=== PATIENT | female | born 1945 | race Asian ===

== ENCOUNTER 2018-07-20 20:31 | Inpatient (IN) | payer MEDICARE ==
[~2018-07-20] VITALS: Ht 152.4 cm; Wt 39.0 kg
--- NOTE | 2018-07-20 20:50 | NUR ---
LINCOLN C/O RESTLESSNESS [id number]. PT UNABLE TO SIT STILL, CONSTANTLY WALKING. PMD RECENTLY CHANGED DOSAGE OF LORAZEPAM AND RISPERIDONE 1 MONTH AGO. PT IS GCS 12. NO S/S OF ACUTE DISTRESS NOTED. RR EVEN AND UNLABORED. PT PLACED ON FEED AND FARM MANAGEMENT ADVISER AND POX. SON AND FAMILY BEDSIDE WITH PT. PT NOTED SITTING IN CHAIR WITH SON BESIDES HER. BEDSIDE FOR EVAL. WILL CONTINUE TO MONITOR PT FOR SAFETY AND COMFORT.
[2018-07-20] MEDS ORDERED: HALOPERIDOL LACTATE INJ 5 MG/ML VIAL ONE (21:11)
[2018-07-20 21:21] LABS: BASOPHILS % (AUTO) 0.4 % (0.0-2.0); EOSINOPHILS % (AUTO) 0.7 % (0.0-6.0); HEMATOCRIT 37 % (33-45); LYMPHOCYTES # (AUTO) 1.2 /CMM (0.8-4.8); LYMPHOCYTES % (AUTO) 16.9 % (20.0-44.0); MEAN CORPUSCULAR HGB CONC 33 g/dl (31.0-36.0); MEAN CORPUSCULAR VOLUME 93 fL (82-100); MONOCYTES # (AUTO) 0.4 /CMM (0.1-1.30); MONOCYTES % (AUTO) 6.1 % (2.0-12.0); NEUTROPHILS # (AUTO) 5.5 /CMM (1.8-8.9); NEUTROPHILS % (AUTO) 75.9 % (43.0-81.0); PLATELET COUNT (AUTO) 283 /CMM (150-450); RED BLOOD CELL COUNT(AUTO) 3.91 MIL/uL (4.0-5.2); WHITE BLOOD COUNT (AUTO) 7.2 K/uL (4.3-11.0)
[2018-07-20 21:30] LABS: CALCIUM, SERUM 8.7 mg/dL (8.5-10.1); CARBON DIOXIDE 25 mmol/L (21-32); CHLORIDE 103 mmol/L (98-107); CREATININE 0.9 mg/dL (0.6-1.3); GLUCOSE 285 mg/dL (74-106); POTASSIUM 3.9 mmol/L (3.5-5.1); SODIUM SERUM 139 mmol/L (136-145); UREA NITROGEN, BLOOD 15 mg/dL (7-18)
[2018-07-20] MEDS ORDERED: HALOPERIDOL LACTATE INJ 5 MG/ML VIAL IM ONE (21:30)
[2018-07-20 21:36] LABS: ALANINE AMINOTRANSFERASE 18 U/L (12-78); ALBUMIN 3.5 g/dL (3.4-5.0); ALCOHOL, BLOOD < 3 mg/dL (0-0); ALKALINE PHOSPHATASE 84 U/L (46-116); ASPARTATE AMINOTRANSFERASE 16 U/L (15-37); BILIRUBIN,DIRECT 0.1 mg/dL (0.0-0.2); BILIRUBIN,TOTAL 0.2 mg/dL (0.2-1.0); TOTAL PROTEIN, SERUM 7.2 g/dL (6.4-8.2)
[2018-07-20 21:37] LABS: ACETAMINOPHEN < 2 ug/ml (10-30); SALICYLATE 1.4 mg/dL (2.8-20.0)
--- NOTE | 2018-07-20 22:00 | NUR ---
PT RESTING IN CHAIR WITH SON BESIDES HER. NO S/S OF DISTRESS NOTED. WILL CONTINUE TO MONITOR PT.
--- NOTE | 2018-07-20 22:23 | NUR ---
REPORT GIVEN TO WILMA JOSHI FOR ANGE.
--- NOTE | 2018-07-20 22:30 | NUR ---
ADMITTED A 73 Y/O FEMALE FROM [facility] BROUGHT BY FAMILY, [facility], TRANSFERRED TO GPS WITH 1 PERSONS ASSIST VIA WHEELCHAIR, ON 5150 HOLD GD, BASED ON HOLD, PATIENT IS CONFUSED, DISORGANIZED, DISORIENTED, EXTREMELY ANXIOUS, RESTLESS, CONSTANTLY PACING, PUSHING OTHER RESIDENT, NOT SLEEPING AND NO PLAN FOR SELF CARE, PATIENT ADMITTING DX. PSYCHOSIS, MEDICAL DX. OF ALZHEIMERS DISEASE, HYPERTENSION, UPON FACE TO FACE EVALUATION, PATIENT APPEARED CONFUSED, NOT RESPONDING TO QUESTION, PACING, DISORGANIZED, UNCOOPERATIVE, NO SOB, NO ACUTE DISTRESS, BREATHING EVEN AND UNLABORED, NO S/S OF PAIN AND DISCOMFORT, PATIENT UNABLE TO SIGN PAPER WORKS, BELONGING INSPECTED FOR CONTRABAND CHECK, NOTIFIED DR. XAVIER TO RECONCILE MEDICATION, ALL NEEDS ATTENDED AND MET, WILL CONTINUE TO MONITOR.
[2018-07-20] MEDS ORDERED: ACETAMINOPHEN 325 MG TABLET PO PRN (23:00)
[2018-07-20] MEDS ORDERED: LORAZEPAM 0.5 MG TABLET PO PRN (23:00)
[2018-07-20] MEDS ORDERED: MAGNESIUM HYDROXIDE 30 ML UDC PO PRN (23:00)
[2018-07-20] MEDS ORDERED: MAG HYDROX/AL HYDROX/SIMETH 30 ML UDC PO PRN (23:00)
[2018-07-20] MEDS ORDERED: ZOLPIDEM TARTRATE 5 MG TABLET PO PRN (23:00)
[2018-07-20] MEDS ORDERED: TOBR5DRO46 RIGHTEYE (23:46)
[2018-07-20] MEDS ORDERED: LACT-179 PO (23:46)
[2018-07-20] MEDS ORDERED: AMLO5TAB7 PO (23:46)
[2018-07-20] MEDS ORDERED: DONE10TA44 PO (23:46)
[2018-07-20] MEDS ORDERED: MEMA10TA PO (23:46)
[2018-07-20] MEDS ORDERED: ASPI-1169 PO (23:46)
[2018-07-20] MEDS ORDERED: RISP1TAB27 PO (23:46)
[2018-07-21 02:20] VITALS: BP 149/63
[2018-07-21 07:05] LABS: BASOPHILS % (AUTO) 0.4 % (0.0-2.0); EOSINOPHILS % (AUTO) 0.5 % (0.0-6.0); HEMATOCRIT 36 % (33-45); HEMOGLOBIN 11.7 g/dL (11.5-14.8); LYMPHOCYTES % (AUTO) 15.1 % (20.0-44.0); MEAN CORPUSCULAR HGB CONC 33 g/dl (31.0-36.0); MEAN CORPUSCULAR VOLUME 93 fL (82-100); MONOCYTES % (AUTO) 6.5 % (2.0-12.0); NEUTROPHILS % (AUTO) 77.5 % (43.0-81.0); PLATELET COUNT (AUTO) 278 /CMM (150-450); RED BLOOD CELL COUNT(AUTO) 3.81 MIL/uL (4.0-5.2); WHITE BLOOD COUNT (AUTO) 6.1 K/uL (4.3-11.0)
[2018-07-21 07:06] LABS: LYMPHOCYTES # (AUTO) 0.9 /CMM (0.8-4.8); MONOCYTES # (AUTO) 0.4 /CMM (0.1-1.30); NEUTROPHILS # (AUTO) 4.8 /CMM (1.8-8.9)
[2018-07-21 07:29] LABS: ALANINE AMINOTRANSFERASE 18 U/L (12-78); ALBUMIN 3.5 g/dL (3.4-5.0); ALKALINE PHOSPHATASE 78 U/L (46-116); ASPARTATE AMINOTRANSFERASE 21 U/L (15-37); BILIRUBIN,TOTAL 0.2 mg/dL (0.2-1.0); CALCIUM, SERUM 8.8 mg/dL (8.5-10.1); CARBON DIOXIDE 24 mmol/L (21-32); CHLORIDE 103 mmol/L (98-107); CREATININE 0.7 mg/dL (0.6-1.3); GLUCOSE 136 mg/dL (74-106); POTASSIUM 3.5 mmol/L (3.5-5.1); SODIUM SERUM 137 mmol/L (136-145); UREA NITROGEN, BLOOD 14 mg/dL (7-18)
[2018-07-21 08:00] VITALS: BP 98/68
[2018-07-21] MEDS: AMLODIPINE BESYLATE 5 MG TABLET PO SCH (09:00)
[2018-07-21] MEDS: ENSURE ENLIVE CHOC 237 ML CAN PO SCH ×3 (09:11→17:34)
[2018-07-21] MEDS: MEMANTINE HCL 5 MG TABLET PO SCH ×2 (09:11→17:35)
[2018-07-21] MEDS: ASPIRIN 81 MG TAB.CHEW PO SCH (09:11)
[2018-07-21 10:11] LABS: CHOLESTEROL 195 mg/dL (<200); HDL CHOLESTEROL 90 mg/dL (40-60); LDL 103 mg/dL (0-99); TRIGLYCERIDES 57 mg/dL (30-150)
[2018-07-21 16:00] VITALS: BP 126/57
[2018-07-21 20:00] VITALS: BP 156/82
[2018-07-21] MEDS: DONEPEZIL 5 MG TABLET PO SCH (21:59)
[2018-07-21] MEDS: QUETIAPINE FUMARATE 25 MG TABLET PO SCH (21:59)
[2018-07-21] MEDS: LORAZEPAM 0.5 MG TABLET PO PRN (22:00)
[2018-07-22 08:00] VITALS: BP 120/69
[2018-07-22] MEDS: ASPIRIN 81 MG TAB.CHEW PO SCH (08:30)
[2018-07-22] MEDS: MEMANTINE HCL 5 MG TABLET PO SCH ×2 (08:30→16:15)
[2018-07-22] MEDS: AMLODIPINE BESYLATE 5 MG TABLET PO SCH (08:30)
[2018-07-22] MEDS: ENSURE ENLIVE CHOC 237 ML CAN PO SCH ×3 (08:31→16:15)
[2018-07-22 16:01] VITALS: BP 100/59
[2018-07-22 20:00] VITALS: BP 140/69
[2018-07-22] MEDS: DONEPEZIL 5 MG TABLET PO SCH (21:40)
[2018-07-22] MEDS: QUETIAPINE FUMARATE 25 MG TABLET PO SCH (21:40)
[2018-07-22] MEDS: LORAZEPAM 0.5 MG TABLET PO PRN (23:14)
--- NOTE | 2018-07-22 23:14 | NUR ---
GPS-RN PATIENT IS ANXIOUS AND RESTLESS. ADMINISTERED ATIVAN 0.5MG PO ORDERED. WILL CONTINUE TO MONITOR PT. CLOSELY.
[2018-07-23 08:00] VITALS: BP 149/54
[2018-07-23] MEDS: AMLODIPINE BESYLATE 5 MG TABLET PO SCH (09:52)
[2018-07-23] MEDS: MEMANTINE HCL 5 MG TABLET PO SCH ×2 (09:52→16:38)
[2018-07-23] MEDS: ASPIRIN 81 MG TAB.CHEW PO SCH (09:52)
[2018-07-23] MEDS: ENSURE ENLIVE CHOC 237 ML CAN PO SCH ×3 (09:56→16:41)
--- NOTE | 2018-07-23 10:57 | NUR ---
SW spoke with pts son Jared [phone] regarding discharge planning and collateral information. Per son, he wishes for pt to be discharged to a SNF. Son also stated that he is pts Probate Conservator, SW requested documentation be faxed to her to place in pts chart. SOn also stated that he was okay with pt being placed locally.
--- NOTE | 2018-07-23 11:19 | NUR ---
INITIAL DISCHARGE PLAN: Pts son Jared [phone] wishes for pt to be discharged to a SNF. Pts son, agrees to local placement. SW will help form a safe and proper discharge in collaboration with Son and MD.
[2018-07-23 16:00] VITALS: BP 150/102
[2018-07-23 20:36] VITALS: BP 149/99
[2018-07-23] MEDS: QUETIAPINE FUMARATE 25 MG TABLET PO SCH (21:40)
[2018-07-23] MEDS: DONEPEZIL 5 MG TABLET PO SCH (21:41)
[2018-07-24] MEDS: LORAZEPAM 0.5 MG TABLET PO PRN ×2 (00:33→20:57)
--- NOTE | 2018-07-24 00:33 | NUR ---
GPS-RN PATIENT IS ANXIOUS AND RESTLESS. ADMINISTERED ATIVAN 0.5MG PO ORDERED. WILL MONITOR CLOSELY PATIENT'S BEHAVIOR AND SAFETY.
[2018-07-24 08:00] VITALS: BP 113/58
[2018-07-24] MEDS: AMLODIPINE BESYLATE 5 MG TABLET PO SCH (08:47)
[2018-07-24] MEDS: ASPIRIN 81 MG TAB.CHEW PO SCH (08:47)
[2018-07-24] MEDS: MEMANTINE HCL 5 MG TABLET PO SCH ×2 (08:47→16:48)
[2018-07-24] MEDS: ENSURE ENLIVE CHOC 237 ML CAN PO SCH ×3 (09:03→16:49)
[2018-07-24 16:00] VITALS: BP 116/88
[2018-07-24 20:19] VITALS: BP 114/73
[2018-07-24] MEDS: DONEPEZIL 5 MG TABLET PO SCH (21:10)
[2018-07-24] MEDS: QUETIAPINE FUMARATE 25 MG TABLET PO SCH (21:11)
[2018-07-25 08:00] VITALS: BP_SYST 130; BP_SYST 146; BP_DIAS 69; BP_DIAS 81
--- NOTE | 2018-07-25 09:45 | NUR ---
SW received Probate Conservatorship paperwork via fax from Pts son Jared [phone] and placed it in pts chart.
[2018-07-25] MEDS: AMLODIPINE BESYLATE 5 MG TABLET PO SCH (09:57)
[2018-07-25] MEDS: ASPIRIN 81 MG TAB.CHEW PO SCH (09:57)
[2018-07-25] MEDS: ENSURE ENLIVE CHOC 237 ML CAN PO SCH ×3 (09:58→18:04)
[2018-07-25] MEDS: MEMANTINE HCL 5 MG TABLET PO SCH ×2 (10:00→18:04)
--- NOTE | 2018-07-25 15:26 | NUR ---
BRENDA faxed SNF referral to Oimd Rail Filler at [facility] [place] Address: [address] [facility], [place] [address] for review.
[2018-07-25 16:00] VITALS: BP 121/54
--- NOTE | 2018-07-25 18:00 | NUR ---
cooperative,med compliant.
[2018-07-25 20:22] VITALS: BP 131/65
[2018-07-25] MEDS: DONEPEZIL 5 MG TABLET PO SCH (21:19)
[2018-07-25] MEDS: QUETIAPINE FUMARATE 25 MG TABLET PO SCH (21:19)
[2018-07-26 08:00] VITALS: BP 128/65
[2018-07-26] MEDS: ASPIRIN 81 MG TAB.CHEW PO SCH (09:33)
[2018-07-26] MEDS: MEMANTINE HCL 5 MG TABLET PO SCH ×2 (09:33→17:09)
[2018-07-26] MEDS: AMLODIPINE BESYLATE 5 MG TABLET PO SCH (09:33)
[2018-07-26] MEDS: ENSURE ENLIVE CHOC 237 ML CAN PO SCH ×3 (09:35→17:13)
--- NOTE | 2018-07-26 13:18 | NUR ---
SW received a phone call from Neida, organ recovery coordinator at [facility] Address: [address] [facility], [place] [address] stating pt has been accepted to the facility.
[2018-07-26 16:00] VITALS: BP 112/63
--- NOTE | 2018-07-26 19:03 | NUR ---
Patient cooperative,med compliant.
[2018-07-26 20:00] VITALS: BP 114/58
[2018-07-26] MEDS: QUETIAPINE FUMARATE 25 MG TABLET PO SCH (21:31)
[2018-07-26] MEDS: DONEPEZIL 5 MG TABLET PO SCH (21:31)
[2018-07-27 08:00] VITALS: BP 139/74
[2018-07-27] MEDS: MEMANTINE HCL 5 MG TABLET PO SCH (08:28)
[2018-07-27] MEDS: ASPIRIN 81 MG TAB.CHEW PO SCH (08:28)
[2018-07-27 08:29] VITALS: BP 139/74
[2018-07-27] MEDS: ENSURE ENLIVE CHOC 237 ML CAN PO SCH ×2 (08:29→14:01)
[2018-07-27] MEDS: AMLODIPINE BESYLATE 5 MG TABLET PO SCH (08:29)
--- NOTE | 2018-07-27 09:58 | NUR ---
BRENDA spoke with pts son Jared [phone] regarding pts discharge on this present day to [facility]. Pts son agreed with discharge plan.
--- NOTE | 2018-07-27 10:00 | NUR ---
RN-CO: Patient was seen and examined by Dr Mc with orders to discontinue hold and discharge patient, noted. Son , made aware and in agreement.
--- NOTE | 2018-07-27 14:45 | NUR ---
GPS/RN PT DISCHARGED TO [facility] ([facility]) [address] [facility] [address] WITH REPORT GIVEN TO CHAITANYA KOCH. NO SI OR HI NOTED OM D/C. PT REFUSED TO SIGN DISCAHRGE PAPERWORK.PROPERTY RETURNED, PRESCRIPTIONS PROVIDED.VSS.
--- NOTE | 2018-07-27 14:59 | NUR ---
DISCHARGE NOTE: Pt was discharged at 2:30pm via [facility] ambulance trip#[id number] to [facility] ([facility]) [address] [facility] [id number] . Pts Son Jared [phone] has been notified and agreed with discharge plan. Pts mood was confused with congruent affect. Pt unabel to verbalize due to cognitive impairment. Pt will be uder the care of Sinter Machine Operator: Dr. Arun Duke Address: [address] [place] [address] [address], [place] [address] an Psychiatrist: Psychiatrist: Dr. Mc [address] [facility] [address] [address] [phone]. The multidisciplinary exitcare form was done, printed, signed, and given to the patient.
== END 2018-07-27 14:45 | DRG 885 ==
LOC: ER 20:33 → GPS 22:17
PROVIDERS: ADMIT Psychiatry & Neurology Psychiatry; ATTEND Psychiatry & Neurology Psychiatry
DX: F29 Unspecified psychosis not due to a substance or known physiological condition (principal); F03.91 Unspecified dementia, unspecified severity, with behavioral disturbance; E44.0 Moderate protein-calorie malnutrition; Z68.1 Body mass index [BMI] 19.9 or less, adult; Z73.6 Limitation of activities due to disability; E78.5 Hyperlipidemia, unspecified; I10 Essential (primary) hypertension; Z79.899 Other long term (current) drug therapy
CPT/HCPCS: 36415; 80048-TC; 80053-TC; 80061-TC; 80076-TC; 85025-TC; 87081-TC; A4606; G0480; J1630; Z7610